=== PATIENT | female | born 1960 | race African-American/Black ===

== ENCOUNTER → 2017-07-27 | Outpatient (CLI) | payer MEDICARE, BC | END | disposition home or self-care (01) | LOC: HKI 11:36 | DX: T84.022A Instability of internal right knee prosthesis, initial encounter (principal); Y83.8 Other surgical procedures as the cause of abnormal reaction of the patient, or of later complication, without mention of misadventure at the time of the procedure; Z96.651 Presence of right artificial knee joint | CPT/HCPCS: G0463 ==

== ENCOUNTER 2017-08-10 09:39 | Inpatient (IN) | payer MEDICARE, BC ==
[2017-08-10] MEDS: CEFAZOLIN 2 GM/50 ML (PMX) 50 ML IVPB (10:30)
[2017-08-10] MEDS ORDERED: TOBRAMYCIN 1.2 GM POWDER (12:55)
[2017-08-10] MEDS ORDERED: morphine SULFATE/PF (10 MG/10 ML) INJ (14:06)
[2017-08-10] MEDS ORDERED: MIDAZOLAM 1 MG/ML 2 ML INJ (14:06)
[2017-08-10] MEDS: TRANEXAMIC ACID 1,000 MG in DEXTROSE 5% 100 ML IVPB ×2 (14:30→15:00)
[2017-08-10] MEDS ORDERED: TRANEXAMIC ACID 1000 MG IRR (15:00)
[2017-08-10] MEDS ORDERED: SOD CHLORIDE 0.9% IRR (15:00)
[2017-08-10] MEDS: POLYMYXIN B 500000 UNIT INJ (15:12)
[2017-08-10] MEDS: BACITRACIN 50000 UNITS INJ (15:12)
[2017-08-10] MEDS: VANCOMYCIN 1 GM INJ (15:12)
[2017-08-10] MEDS: ROPIVACAINE 0.2% 60 ML, morphine SULFATE (PF) 4 MG, CLONIDINE 100 MCG, KETOROLAC 30 MG,... INJ (16:01)
[2017-08-10] MEDS ORDERED: LIDOCAINE 100 MG SYRINGE (17:14)
[2017-08-10] MEDS ORDERED: CEFAZOLIN 1 GM INJ (17:14)
[2017-08-10] MEDS ORDERED: ETOMIDATE 20 MG INJ (17:14)
[2017-08-10] MEDS ORDERED: PROPOFOL 200 MG INJ (17:14)
[2017-08-10] MEDS ORDERED: NEOSTIGMINE 3 MG/3 ML SYRINGE (17:14)
[2017-08-10] MEDS ORDERED: GLYCOPYRROLATE 0.4 MG INJ (17:14)
[2017-08-10] MEDS ORDERED: ROCURONIUM 50 MG INJ (17:14)
[2017-08-10] MEDS ORDERED: ONDANSETRON 4 MG INJ (17:14)
[2017-08-10] MEDS ORDERED: NA PHOSPHATE/BIPHOS 133 ML ENEMA PR (17:30)
[2017-08-10] MEDS ORDERED: hydrALAzine 20 MG INJ IV (17:30)
[2017-08-10] MEDS ORDERED: oxyCODONE 5 MG TAB PO ×3 (17:30)
[2017-08-10] MEDS ORDERED: ONDANSETRON 4 MG INJ IV (17:30)
[2017-08-10] MEDS ORDERED: KETOROLAC 15 MG INJ IV (17:30)
[2017-08-10] MEDS ORDERED: METOCLOPRAMIDE 10 MG INJ IV (17:30)
[2017-08-10] MEDS ORDERED: DIPHENHYDRAMINE 50 MG INJ IM (17:30)
[2017-08-10] MEDS ORDERED: HYDROmorphONE (0.2 MG/ML) 10ML SYG IV ×2 (17:30)
[2017-08-10] MEDS ORDERED: FENTAnyl 50 MCG/ML VIAL IV (17:30)
[2017-08-10] MEDS ORDERED: DIPHENHYDRAMINE 50 MG INJ IV (17:30)
[2017-08-10] MEDS ORDERED: ZOLPIDEM 5 MG TAB PO (17:30)
[2017-08-10] MEDS ORDERED: SENNA/DOCUSATE NA (8.6MG/50MG) TAB PO (17:30)
[2017-08-10] MEDS ORDERED: NALOXONE (0.4 MG/ML) INJ IV ×2 (17:30)
[2017-08-10] MEDS ORDERED: MEPERIDINE 25 MG INJ IV (17:30)
[2017-08-10] MEDS ORDERED: MAGNESIUM HYDROXIDE 30ML CUP PO (17:30)
[2017-08-10] MEDS ORDERED: LABETALOL HCL 20MG INJ IV (17:30)
[2017-08-10] MEDS ORDERED: BETHANECHOL 25 MG TAB PO (17:30)
[2017-08-10] MEDS ORDERED: BISACODYL 10 MG SUPP PR (17:30)
[2017-08-10] MEDS: DOCUSATE SODIUM 100 MG CAP PO (18:42)
[2017-08-10] MEDS: ASPIRIN (EC) 325 MG TAB PO ×2 (18:43→21:13)
[2017-08-10] MEDS: ONDANSETRON 4 MG INJ IV ×2 (18:48→23:30)
[2017-08-10] MEDS: CEFAZOLIN 1 GM/50 ML (PMX) 50 ML IVPB (18:48)
[2017-08-10] MEDS: SOD CHLORIDE 0.9% 1,000 ML IV (18:49)
[2017-08-10] MEDS: GABAPENTIN 100 MG CAP PO (21:13)
[2017-08-11] MEDS: CEFAZOLIN 1 GM/50 ML (PMX) 50 ML IVPB ×2 (00:25→08:54)
[2017-08-11 05:13] LABS: ADD MAN DIFF? NO
[2017-08-11 05:16] LABS: BASOPHILS % 0.2 % (0.0-2.0); EOSINOPHILS # 0.1 10^3/ul (0.0-0.5); EOSINOPHILS % 1.7 % (0.0-7.0); HEMATOCRIT 30.9 % (37.0-47.0); HEMOGLOBIN 9.7 g/dl (12.0-16.0); LYMPHOCYTES # 1.3 10^3/ul (0.8-2.9); LYMPHOCYTES % 15.7 % (15.0-51.0); MEAN CORPUSCULAR HEMOGLOBIN 27.3 pg (29.0-33.0); MEAN CORPUSCULAR HGB CONC 31.4 g/dl (32.0-37.0); MEAN PLATELET VOLUME 9.9 fl (7.4-10.4); MONOCYTE # 0.7 10^3/ul (0.3-0.9); MONOCYTES % 8.5 % (0.0-11.0); NEUTROPHIL # 6.1 10^3/ul (1.6-7.5); NEUTROPHILS % 73.4 % (39.0-77.0); PLATELET COUNT 212 10^3/UL (140-415); RED BLOOD COUNT 3.55 10^6/ul (4.20-5.40); RED CELL DISTRIBUTION WIDTH 14.1 % (11.5-14.5)
[2017-08-11 05:16] LABS: WHITE BLOOD COUNT 8.4 10^3/ul (4.8-10.8)
[2017-08-11] MEDS: ONDANSETRON 4 MG INJ IV ×2 (05:30→11:30)
[2017-08-11 05:33] LABS: ANION GAP 12 (8-16); BLOOD UREA NITROGEN 16 mg/dl (7-20); CALCIUM 9.3 mg/dl (8.4-10.2); CARBON DIOXIDE 30 mmol/L (21-31); CHLORIDE 106 mmol/L (97-110); CREATININE 0.95 mg/dl (0.44-1.00); GLUCOSE 95 mg/dl (70-220); POTASSIUM 5.5 mmol/L (3.5-5.1); SODIUM 142 mmol/L (135-144)
[2017-08-11] MEDS: SOD CHLORIDE 0.9% 1,000 ML IV ×2 (05:50→18:20)
[2017-08-11] MEDS: CELECOXIB 200 MG CAP PO ×2 (08:53→21:09)
[2017-08-11] MEDS: FERROUS FUMARATE (SR) TAB PO ×2 (08:54→21:09)
[2017-08-11] MEDS: DOCUSATE SODIUM 100 MG CAP PO ×2 (08:54→21:09)
[2017-08-11] MEDS: ASPIRIN (EC) 325 MG TAB PO ×2 (08:54→21:09)
[2017-08-11] MEDS: GABAPENTIN 100 MG CAP PO ×2 (08:54→21:09)
[2017-08-11 10:19] LABS: ADD UMIC YES; UR ASCORBIC ACID NEGATIVE (NEGATIVE); UR BILIRUBIN (Dip) NEGATIVE (NEGATIVE); UR BLOOD (Dip) 2+ mg/dL (NEGATIVE); UR CLARITY CLEAR (CLEAR); UR COLOR YELLOW (YELLOW); UR GLUCOSE (Dip) NEGATIVE (NEGATIVE); UR KETONES (Dip) NEGATIVE (NEGATIVE); UR LEUKOCYTE ESTERASE (Dip) NEGATIVE Leu/ul (NEGATIVE); UR NITRITE (Dip) NEGATIVE (NEGATIVE); UR RBC 22 /HPF (0-5); UR SPECIFIC GRAVITY (Dip) 1.025 (1.003-1.030); UR TOTAL PROTEIN (Dip) NEGATIVE (NEGATIVE); UR UROBILINOGEN (Dip) NEGATIVE (NEGATIVE); UR WBC 3 /HPF (0-5)
[2017-08-12 05:30] LABS: ADD MAN DIFF? NO; BASOPHILS % 0.2 % (0.0-2.0); EOSINOPHILS # 0.2 10^3/ul (0.0-0.5); EOSINOPHILS % 1.7 % (0.0-7.0); HEMOGLOBIN 9.6 g/dl (12.0-16.0); LYMPHOCYTES # 1.2 10^3/ul (0.8-2.9); LYMPHOCYTES % 12.3 % (15.0-51.0); MEAN CORPUSCULAR VOLUME 84.5 fl (82.0-101.0); MONOCYTE # 0.9 10^3/ul (0.3-0.9); MONOCYTES % 9.4 % (0.0-11.0); NEUTROPHIL # 7.6 10^3/ul (1.6-7.5); NEUTROPHILS % 76.2 % (39.0-77.0); PLATELET COUNT 192 10^3/UL (140-415); RED BLOOD COUNT 3.55 10^6/ul (4.20-5.40); RED CELL DISTRIBUTION WIDTH 13.6 % (11.5-14.5)
[2017-08-12 06:10] LABS: ANION GAP 12 (8-16); BLOOD UREA NITROGEN 13 mg/dl (7-20); CALCIUM 8.8 mg/dl (8.4-10.2); CARBON DIOXIDE 26 mmol/L (21-31); CHLORIDE 106 mmol/L (97-110); CREATININE 0.86 mg/dl (0.44-1.00); GLUCOSE 109 mg/dl (70-220); POTASSIUM 3.9 mmol/L (3.5-5.1); SODIUM 140 mmol/L (135-144)
[2017-08-12] MEDS: SOD CHLORIDE 0.9% 1,000 ML IV ×2 (06:50→19:20)
[2017-08-12] MEDS: FERROUS FUMARATE (SR) TAB PO ×2 (08:34→21:18)
[2017-08-12] MEDS: GABAPENTIN 100 MG CAP PO ×2 (08:34→21:18)
[2017-08-12] MEDS: CELECOXIB 200 MG CAP PO ×2 (08:34→21:18)
[2017-08-12] MEDS: DOCUSATE SODIUM 100 MG CAP PO ×2 (08:35→21:18)
[2017-08-12] MEDS: ASPIRIN (EC) 325 MG TAB PO ×2 (08:35→21:18)
[2017-08-12] MEDS: PANTOPRAZOLE (EC) 40 MG TAB PO (08:35)
== END 2017-08-12 21:35 | DRG 941 ==
LOC: REC 09:39 → MS1 18:20
PROC: 0SPC0JZ Removal of Synthetic Substitute from Right Knee Joint, Open Approach (ICD-10-PCS; principal; 2017-08-10 13:30)
PROC: 0SRC0J9 Replacement of Right Knee Joint with Synthetic Substitute, Cemented, Open Approach (ICD-10-PCS; 2017-08-10 13:30)
DX: T84.032D Mechanical loosening of internal right knee prosthetic joint, subsequent encounter (principal); E66.9 Obesity, unspecified; Z68.39 Body mass index [BMI] 39.0-39.9, adult
CPT/HCPCS: 73560; 80048; 81001; 85025; 86850; 86900; 86901; 87070; 87086; 88300; 88305; 88331; 97110; 97116; 97163; 97530; 97535

== ENCOUNTER 2017-08-12 22:46 | Inpatient (IN) | payer MEDICARE, BC ==
[2017-08-12] MEDS ORDERED: HYDROCODONE/APAP (10/325) TAB PO (23:00)
[2017-08-13] MEDS ORDERED: ACETAMINOPHEN 325 MG TAB PO (02:30)
[2017-08-13] MEDS ORDERED: MAGNESIUM HYDROXIDE 30ML CUP PO (02:30)
[2017-08-13] MEDS ORDERED: BISACODYL 10 MG SUPP PR (02:30)
[2017-08-13 03:04] LABS: ADD UMIC YES; UR ASCORBIC ACID NEGATIVE (NEGATIVE); UR BACTERIA FEW /HPF (NONE SEEN); UR BILIRUBIN (Dip) NEGATIVE (NEGATIVE); UR BLOOD (Dip) NEGATIVE (NEGATIVE); UR CLARITY SLIGHTLY CLOUDY (CLEAR); UR COLOR YELLOW (YELLOW); UR GLUCOSE (Dip) NEGATIVE (NEGATIVE); UR KETONES (Dip) NEGATIVE (NEGATIVE); UR LEUKOCYTE ESTERASE (Dip) TRACE Leu/ul (NEGATIVE); UR NITRITE (Dip) NEGATIVE (NEGATIVE); UR RBC 1 /HPF (0-5); UR SPECIFIC GRAVITY (Dip) 1.016 (1.003-1.030); UR SQUAMOUS EPITHELIAL CELL FEW /HPF (FEW); UR TOTAL PROTEIN (Dip) NEGATIVE (NEGATIVE); UR UROBILINOGEN (Dip) NEGATIVE (NEGATIVE); UR WBC 2 /HPF (0-5)
[2017-08-13] MEDS: DOCUSATE SODIUM 100 MG CAP PO ×2 (08:49→21:12)
[2017-08-13] MEDS: ASPIRIN 325 MG TAB PO ×2 (08:49→21:12)
[2017-08-13] MEDS: CELECOXIB 200 MG CAP PO ×2 (08:49→21:11)
[2017-08-13] MEDS: LEVOFLOXACIN 500 MG TAB PO (13:09)
[2017-08-13] MEDS: HYDROCODONE/APAP (10/325) TAB PO (13:09)
[2017-08-13 16:30] LABS: ADD MAN DIFF? NO
[2017-08-13 16:33] LABS: BASOPHILS % 0.2 % (0.0-2.0); EOSINOPHILS # 0.4 10^3/ul (0.0-0.5); EOSINOPHILS % 3.6 % (0.0-7.0); HEMATOCRIT 29.2 % (37.0-47.0); HEMOGLOBIN 9.2 g/dl (12.0-16.0); LYMPHOCYTES % 10.1 % (15.0-51.0); MEAN CORPUSCULAR HEMOGLOBIN 27.1 pg (29.0-33.0); MEAN CORPUSCULAR HGB CONC 31.5 g/dl (32.0-37.0); MEAN CORPUSCULAR VOLUME 85.9 fl (82.0-101.0); MEAN PLATELET VOLUME 10.3 fl (7.4-10.4); MONOCYTE # 0.8 10^3/ul (0.3-0.9); MONOCYTES % 8.1 % (0.0-11.0); NEUTROPHIL # 7.6 10^3/ul (1.6-7.5); NEUTROPHILS % 77.6 % (39.0-77.0); PLATELET COUNT 218 10^3/UL (140-415)
[2017-08-13 16:33] LABS: WHITE BLOOD COUNT 9.8 10^3/ul (4.8-10.8)
[2017-08-13 16:56] LABS: ALANINE AMINOTRANSFERASE 29 IU/L (13-69); ALBUMIN 3.5 g/dl (3.3-4.9); ALBUMIN/GLOBULIN RATIO 1.02; ALKALINE PHOSPHATASE 115 IU/L (42-121); ANION GAP 14 (8-16); ASPARTATE AMINO TRANSFERASE 29 IU/L (15-46); BILIRUBIN,INDIRECT 0.2 mg/dl (0-1.1); BILIRUBIN,TOTAL 0.2 mg/dl (0.2-1.3); BLOOD UREA NITROGEN 15 mg/dl (7-20); CALCIUM 9.3 mg/dl (8.4-10.2); CARBON DIOXIDE 28 mmol/L (21-31); CHLORIDE 103 mmol/L (97-110); CREATININE 0.99 mg/dl (0.44-1.00); GLUCOSE 105 mg/dl (70-220); SODIUM 141 mmol/L (135-144); TOTAL PROTEIN 6.9 g/dl (6.1-8.1)
[2017-08-13] MEDS: SENNA TAB PO (21:12)
[2017-08-14] MEDS: LEVOFLOXACIN 500 MG TAB PO (06:34)
[2017-08-14 07:03] LABS: ADD MAN DIFF? NO
[2017-08-14 07:11] LABS: WHITE BLOOD COUNT 7.7 10^3/ul (4.8-10.8)
[2017-08-14 07:11] LABS: BASOPHILS % 0.3 % (0.0-2.0); EOSINOPHILS # 0.4 10^3/ul (0.0-0.5); EOSINOPHILS % 5.2 % (0.0-7.0); HEMATOCRIT 28.6 % (37.0-47.0); HEMOGLOBIN 9.2 g/dl (12.0-16.0); LYMPHOCYTES # 1.3 10^3/ul (0.8-2.9); LYMPHOCYTES % 16.6 % (15.0-51.0); MEAN CORPUSCULAR HEMOGLOBIN 27.3 pg (29.0-33.0); MEAN CORPUSCULAR HGB CONC 32.2 g/dl (32.0-37.0); MEAN CORPUSCULAR VOLUME 84.9 fl (82.0-101.0); MEAN PLATELET VOLUME 10.1 fl (7.4-10.4); MONOCYTE # 0.5 10^3/ul (0.3-0.9); NEUTROPHIL # 5.4 10^3/ul (1.6-7.5); NEUTROPHILS % 70.6 % (39.0-77.0); PLATELET COUNT 228 10^3/UL (140-415); RED BLOOD COUNT 3.37 10^6/ul (4.20-5.40)
[2017-08-14 08:01] LABS: ANION GAP 13 (8-16); BLOOD UREA NITROGEN 15 mg/dl (7-20); CALCIUM 9.1 mg/dl (8.4-10.2); CARBON DIOXIDE 28 mmol/L (21-31); CHLORIDE 106 mmol/L (97-110); CREATININE 0.87 mg/dl (0.44-1.00); GLUCOSE 90 mg/dl (70-220); POTASSIUM 3.9 mmol/L (3.5-5.1); SODIUM 143 mmol/L (135-144)
[2017-08-14] MEDS: HYDROCODONE/APAP (10/325) TAB PO ×3 (08:10→15:32)
[2017-08-14] MEDS: ASPIRIN 325 MG TAB PO ×2 (08:10→20:34)
[2017-08-14] MEDS: CELECOXIB 200 MG CAP PO ×2 (08:10→20:34)
[2017-08-14] MEDS: DOCUSATE SODIUM 100 MG CAP PO ×2 (08:10→20:34)
[2017-08-14] MEDS: SENNA TAB PO (20:34)
[2017-08-15] MEDS: LACTULOSE 30ML CUP PO (06:14)
[2017-08-15] MEDS: LEVOFLOXACIN 500 MG TAB PO (06:14)
[2017-08-15] MEDS: DOCUSATE SODIUM 100 MG CAP PO ×2 (09:00→20:37)
[2017-08-15] MEDS: CELECOXIB 200 MG CAP PO ×2 (09:02→20:35)
[2017-08-15] MEDS: HYDROCODONE/APAP (10/325) TAB PO ×2 (09:02→12:30)
[2017-08-15] MEDS: ASPIRIN 325 MG TAB PO ×2 (09:02→20:35)
[2017-08-15] MEDS ORDERED: KETOROLAC 30 MG INJ IM (12:00)
[2017-08-15] MEDS: HYDROCODONE/APAP (5/325) TAB PO (20:35)
[2017-08-15] MEDS: SENNA TAB PO (20:37)
[2017-08-16] MEDS: LEVOFLOXACIN 500 MG TAB PO (06:16)
[2017-08-16 06:46] LABS: ADD MAN DIFF? NO
[2017-08-16 06:49] LABS: BASOPHILS % 0.3 % (0.0-2.0); EOSINOPHILS # 0.6 10^3/ul (0.0-0.5); EOSINOPHILS % 8.8 % (0.0-7.0); HEMATOCRIT 28.3 % (37.0-47.0); HEMOGLOBIN 9.2 g/dl (12.0-16.0); LYMPHOCYTES # 1.5 10^3/ul (0.8-2.9); LYMPHOCYTES % 23.3 % (15.0-51.0); MEAN CORPUSCULAR HEMOGLOBIN 27.7 pg (29.0-33.0); MEAN CORPUSCULAR HGB CONC 32.5 g/dl (32.0-37.0); MEAN CORPUSCULAR VOLUME 85.2 fl (82.0-101.0); MEAN PLATELET VOLUME 9.1 fl (7.4-10.4); MONOCYTE # 0.5 10^3/ul (0.3-0.9); MONOCYTES % 7.4 % (0.0-11.0); NEUTROPHIL # 3.9 10^3/ul (1.6-7.5); PLATELET COUNT 270 10^3/UL (140-415); RED BLOOD COUNT 3.32 10^6/ul (4.20-5.40)
[2017-08-16 06:49] LABS: WHITE BLOOD COUNT 6.5 10^3/ul (4.8-10.8)
[2017-08-16 07:39] LABS: IRON 21 ug/dl (35-150)
[2017-08-16 07:44] LABS: ANION GAP 16 (8-16); BLOOD UREA NITROGEN 19 mg/dl (7-20); CALCIUM 9.3 mg/dl (8.4-10.2); CARBON DIOXIDE 29 mmol/L (21-31); CHLORIDE 108 mmol/L (97-110); CREATININE 0.99 mg/dl (0.44-1.00); GLUCOSE 92 mg/dl (70-220); POTASSIUM 4.6 mmol/L (3.5-5.1); SODIUM 148 mmol/L (135-144)
[2017-08-16 07:50] LABS: % IRON SATURATION 7 % SAT (22-52); TOTAL IRON BINDING CAPACITY 286 ug/dl (241-421)
[2017-08-16] MEDS: ASPIRIN 325 MG TAB PO ×2 (08:22→20:19)
[2017-08-16] MEDS: HYDROCODONE/APAP (10/325) TAB PO ×2 (08:22→11:47)
[2017-08-16] MEDS: CELECOXIB 200 MG CAP PO ×2 (08:22→20:19)
[2017-08-16] MEDS: DOCUSATE SODIUM 100 MG CAP PO ×2 (08:22→21:00)
[2017-08-16] MEDS: FERROUS SULFATE (EC) 325 MG TAB PO (20:19)
[2017-08-16] MEDS: SENNA TAB PO (21:00)
[2017-08-17] MEDS: LEVOFLOXACIN 500 MG TAB PO (06:48)
[2017-08-17] MEDS: CELECOXIB 200 MG CAP PO ×2 (08:30→20:38)
[2017-08-17] MEDS: DOCUSATE SODIUM 100 MG CAP PO ×2 (08:30→20:38)
[2017-08-17] MEDS: ASPIRIN 325 MG TAB PO ×2 (08:30→20:38)
[2017-08-17] MEDS: FERROUS SULFATE (EC) 325 MG TAB PO (08:30)
[2017-08-17] MEDS: HYDROCODONE/APAP (10/325) TAB PO ×2 (08:30→11:22)
[2017-08-17] MEDS: SENNA TAB PO (20:38)
[2017-08-18] MEDS: LEVOFLOXACIN 500 MG TAB PO (05:18)
[2017-08-18] MEDS: ASPIRIN 325 MG TAB PO ×2 (08:51→20:46)
[2017-08-18] MEDS: DOCUSATE SODIUM 100 MG CAP PO ×2 (08:51→20:46)
[2017-08-18] MEDS: CELECOXIB 200 MG CAP PO ×2 (08:52→20:46)
[2017-08-18] MEDS: FERROUS SULFATE (EC) 325 MG TAB PO (08:52)
[2017-08-18] MEDS: HYDROCODONE/APAP (10/325) TAB PO ×2 (08:52→12:00)
[2017-08-18] MEDS: SENNA TAB PO (20:46)
[2017-08-19] MEDS: LACTULOSE 30ML CUP PO (06:05)
[2017-08-19] MEDS: LEVOFLOXACIN 500 MG TAB PO (06:05)
[2017-08-19 06:50] LABS: ADD MAN DIFF? NO
[2017-08-19 07:07] LABS: WHITE BLOOD COUNT 7.1 10^3/ul (4.8-10.8)
[2017-08-19 07:07] LABS: BASOPHILS % 0.4 % (0.0-2.0); EOSINOPHILS # 0.7 10^3/ul (0.0-0.5); EOSINOPHILS % 9.8 % (0.0-7.0); HEMATOCRIT 29.3 % (37.0-47.0); HEMOGLOBIN 9.3 g/dl (12.0-16.0); LYMPHOCYTES # 1.7 10^3/ul (0.8-2.9); LYMPHOCYTES % 24.1 % (15.0-51.0); MEAN CORPUSCULAR HGB CONC 31.7 g/dl (32.0-37.0); MEAN CORPUSCULAR VOLUME 84.9 fl (82.0-101.0); MEAN PLATELET VOLUME 9.1 fl (7.4-10.4); MONOCYTE # 0.5 10^3/ul (0.3-0.9); MONOCYTES % 6.9 % (0.0-11.0); NEUTROPHIL # 4.2 10^3/ul (1.6-7.5); NEUTROPHILS % 58.5 % (39.0-77.0); PLATELET COUNT 317 10^3/UL (140-415); RED BLOOD COUNT 3.45 10^6/ul (4.20-5.40); RED CELL DISTRIBUTION WIDTH 14.2 % (11.5-14.5)
[2017-08-19 07:17] LABS: ANION GAP 15 (8-16); BLOOD UREA NITROGEN 21 mg/dl (7-20); CALCIUM 9.6 mg/dl (8.4-10.2); CARBON DIOXIDE 29 mmol/L (21-31); CHLORIDE 107 mmol/L (97-110); CREATININE 0.99 mg/dl (0.44-1.00); GLUCOSE 96 mg/dl (70-220); POTASSIUM 4.6 mmol/L (3.5-5.1); SODIUM 146 mmol/L (135-144)
[2017-08-19] MEDS: DOCUSATE SODIUM 100 MG CAP PO ×2 (09:00→20:33)
[2017-08-19] MEDS: ASPIRIN 325 MG TAB PO ×2 (09:32→20:23)
[2017-08-19] MEDS: CELECOXIB 200 MG CAP PO ×2 (09:32→20:23)
[2017-08-19] MEDS: FERROUS SULFATE (EC) 325 MG TAB PO (09:32)
[2017-08-19] MEDS: HYDROCODONE/APAP (10/325) TAB PO ×2 (09:33→12:00)
[2017-08-19] MEDS: SENNA TAB PO (20:33)
[2017-08-20] MEDS: HYDROCODONE/APAP (10/325) TAB PO (08:00)
[2017-08-20] MEDS: FERROUS SULFATE (EC) 325 MG TAB PO (08:50)
[2017-08-20] MEDS: ASPIRIN 325 MG TAB PO (08:50)
[2017-08-20] MEDS: CELECOXIB 200 MG CAP PO (08:50)
[2017-08-20] MEDS: DOCUSATE SODIUM 100 MG CAP PO (09:00)
== END 2017-08-20 14:00 | disposition home health service (06) | DRG 560 ==
LOC: VRC 22:46
PROC: F07Z5ZZ Bed Mobility Treatment (ICD-10-PCS; principal; 2017-08-12)
PROC: F08Z2ZZ Grooming/Personal Hygiene Treatment (ICD-10-PCS; 2017-08-12)
DX: Z47.1 Aftercare following joint replacement surgery (principal); D62 Acute posthemorrhagic anemia; E87.0 Hyperosmolality and hypernatremia; Z68.41 Body mass index [BMI] 40.0-44.9, adult; G89.18 Other acute postprocedural pain; Z96.651 Presence of right artificial knee joint; G89.29 Other chronic pain; E66.01 Morbid (severe) obesity due to excess calories; Z76.5 Malingerer [conscious simulation]
CPT/HCPCS: 80048; 80053; 81001; 83540; 85025; 87081; 87086; 97110; 97112; 97116; 97150; 97163; 97165; 97530; 97535

== ENCOUNTER → 2017-08-24 | Outpatient (CLI) | payer MEDICARE, BC | END | disposition home or self-care (01) | LOC: HKI 11:09 | DX: Z47.1 Aftercare following joint replacement surgery (principal); Z96.651 Presence of right artificial knee joint ==

== ENCOUNTER → 2017-09-28 | Outpatient (CLI) | payer MEDICARE, BC | END | disposition home or self-care (01) | LOC: HKI 11:07 | DX: Z09 Encounter for follow-up examination after completed treatment for conditions other than malignant neoplasm (principal); M23.42 Loose body in knee, left knee; Z96.651 Presence of right artificial knee joint | CPT/HCPCS: 73560; 73560-RT ==

== ENCOUNTER → 2017-12-26 | Outpatient (CLI) | payer MEDICARE, BC | END | disposition home or self-care (01) | LOC: HKI 10:10 | DX: Z09 Encounter for follow-up examination after completed treatment for conditions other than malignant neoplasm (principal); M25.561 Pain in right knee; Z96.651 Presence of right artificial knee joint | CPT/HCPCS: 73560; 73560-RT ==

== ENCOUNTER → 2018-04-03 | Outpatient (CLI) | payer MEDICARE, BC | END | disposition home or self-care (01) | LOC: HKI 11:07 | DX: Z47.89 Encounter for other orthopedic aftercare (principal) | CPT/HCPCS: 73560; 73560-RT ==

== ENCOUNTER → 2018-09-27 | Outpatient (CLI) | payer MEDICARE, BC | END | disposition home or self-care (01) | LOC: HKI 09:01 | DX: M70.61 Trochanteric bursitis, right hip (principal); Z96.651 Presence of right artificial knee joint | CPT/HCPCS: 73560; 73560-RT ==